=== PATIENT | male | born 1995 | race Caucasian/White ===

== ENCOUNTER 2017-12-14 13:39 | Emergency (ER) | payer MEDICAID ==
[~2017-12-14] VITALS: Ht 180.3 cm; Wt 81.2 kg
[2017-12-14 13:52] VITALS: BP 123/62; Ht 180.3 cm; Wt 81.2 kg
== END 2017-12-14 15:46 | disposition home or self-care (01) ==
LOC: ED 13:39
DX: S90.221A Contusion of right lesser toe(s) with damage to nail, initial encounter (principal); W22.8XXA Striking against or struck by other objects, initial encounter; Y93.89 Activity, other specified; Y92.89 Other specified places as the place of occurrence of the external cause; Y99.8 Other external cause status